=== PATIENT | female | born 1975 | race Two or more races ===

== ENCOUNTER 2022-08-10 03:01 | Emergency (ER) | payer OTHER ==
[~2022-08-10] VITALS: Ht 154.9 cm; Wt 81.0 kg
[2022-08-10 03:54] VITALS: BP 174/95
[2022-08-10] MEDS ORDERED: IBUPROFEN 800 MG TAB PO ONE (04:30)
== END 2022-08-10 06:20 | disposition home or self-care (01) ==
LOC: ER 03:01
DX: S66.911A Strain of unspecified muscle, fascia and tendon at wrist and hand level, right hand, initial encounter (principal); J45.909 Unspecified asthma, uncomplicated; E11.9 Type 2 diabetes mellitus without complications; I10 Essential (primary) hypertension; X58.XXXA Exposure to other specified factors, initial encounter; Y93.89 Activity, other specified; Y92.89 Other specified places as the place of occurrence of the external cause; Y99.8 Other external cause status
CPT/HCPCS: 73130